=== PATIENT | male | born 1980 | race Caucasian/White ===

== ENCOUNTER 2019-05-20 14:37 | Emergency (ER) | payer OTHER ==
[~2019-05-20] VITALS: Ht 170.2 cm; Wt 89.4 kg
[2019-05-20] MEDS ORDERED: ONDANSETRON ODT8 MG PO (18:22)
[2019-05-20] MEDS ORDERED: NORCO 5-325 TA1 EACH PO (18:22)
== END 2019-05-20 18:38 | disposition home or self-care (01) ==
LOC: ED 14:37
DX: N13.2 Hydronephrosis with renal and ureteral calculous obstruction (principal)
CPT/HCPCS: 74177; 80053; 81001; 83690; 85025; 99284-25; J1170; J2405; J7120